=== PATIENT | male | born 1960 | race Caucasian/White ===

== ENCOUNTER → 2021-08-30 | Outpatient (CLI) | payer SELFPAY | END | disposition home or self-care (01) | LOC: RESCLI 14:39 | PROVIDERS: ATTEND Internal Medicine Nephrology | DX: J44.9 Chronic obstructive pulmonary disease, unspecified (principal); F41.9 Anxiety disorder, unspecified; E55.9 Vitamin D deficiency, unspecified; I50.9 Heart failure, unspecified; Z79.899 Other long term (current) drug therapy; Z79.82 Long term (current) use of aspirin ==